=== PATIENT | female | born 1975 | race American Indian/Alaskan Native ===

== ENCOUNTER 2021-12-28 10:14 | Emergency (ER) | payer BC ==
[2021-12-28] MEDS ORDERED: ONDANSETRON 4 MG/2 ML INJ IV ONE (12:55)
[2021-12-28] MEDS ORDERED: SODIUM CHLORIDE 0.9% 1000 ML 1,000 ML IV ONE (12:55)
--- NOTE | 2021-12-28 13:01 | Emergency Department Report ---
ED N/V/D HPI - General Chief complaint: Nausea/Vomiting/Diarrhea Stated complaint: POSS STOMACH VIRUS Time Seen by Provider: 12/28/21 11:46 Source: patient Mode of arrival: Ambulatory Limitations: No Limitations - History of Present Illness Initial comments: 46-year-old female presents with nausea and vomiting associated with nonbloody diarrhea that has been going on for the last 1-1/2 days. Patient reported that her nephew which she had to cover over the weekend has the same symptoms. She denies any fever but chills. She reported about 5 emesis the last 6 hours. She says she was not able to keep any food or drink. Patient also reports some a bdominal discomfort. Patient denies any use of antibiotics the last 2 or 3 weeks. No other modifying or positive factors reported. - Related Data Previous Rx's Medication Instructions Recorded Last Taken Type Ondansetron (Nf) [Zofran TAB] 8 mg PO Q8HR PRN 5 Days #14 tablet 12/28/21 Unknown Rx Potassium Chloride [K-Dur] 20 meq PO QDAY 7 Days #7 tab NS 12/28/21 Unknown Rx Allergies Allergy/AdvReac Type Severity Reaction Status Date / Time Bleach (Sodium Hypochlorite) AdvReac Anaphylaxis Verified 12/28/21 10:24 morphine AdvReac Hives Verified 12/28/21 10:24 ED Review of Systems ROS: Stated complaint: POSS STOMACH VIRUS Other details as noted in HPI Comment: All other systems reviewed and negative Gastrointestinal: abdominal pain, nausea, vomiting, diarrhea ED Past Medical Hx - Past Medical History Previous Medical History?: Yes Hx Hypertension: Yes Hx Asthma: Yes - Surgical History Past Surgical History?: Yes Additional Surgical History: myomectomy 2017, hysterectomy - Medications Home Medications: Home Medications Medication Instructions Recorded Confirmed Last Taken Type Ondansetron (Nf) [Zofran TAB] 8 mg PO Q8HR PRN 5 Days #14 tablet 12/28/21 Unknown Rx Potassium Chloride [K-Dur] 20 meq PO QDAY 7 Days #7 tab NS 12/28/21 Unknown Rx ED Physical Exam - General Limitations: No Limitations General appearance: alert, in no apparent distress - Eye Eye exam: Present: normal appearance Pupils: Present: normal accommodation - ENT ENT exam: Present: normal exam, normal orophraynx, mucous membranes moist - Neck Neck exam: Present: normal inspection, full ROM - Respiratory Respiratory exam: Present: normal lung sounds bilaterally. Absent: respiratory distress, wheezes, accessory muscle use - Cardiovascular Cardiovascular Exam: Present: regular rate, normal rhythm, normal heart sounds - GI/Abdominal GI/Abdominal exam: Present: soft, tenderness (Diffuse mild abdominal tenderness to palpation), normal bowel sounds. Absent: distended - Extremities Exam Extremities exam: Present: normal inspection, full ROM, normal capillary refill - Back Exam Back exam: Present: normal inspection, full ROM. Absent: tenderness, CVA tenderness (R), CVA tenderness (L) - Neurological Exam Neurological exam: Present: alert, oriented X3 - Psychiatric Psychiatric exam: Present: normal affect, normal mood - Skin Skin exam: Present: warm, intact, normal color ED Course Vital Signs 12/28/21 12/28/21 13:09 15:13 Temperature 99 F Pulse Rate 90 Respiratory 18 Rate Blood Pressure 108/67 [Left] O2 Sat by Pulse 99 98 Oximetry - Reevaluation(s) Reevaluation #1: 12/28/21 13:00 Here with nausea and vomiting associated with nonbloody diarrhea this is likely gastroenteritis--we will go ahead and give morphine, Zofran, 1 L IV fluids for symptomatic relief and check CBC, CMP, and UA for any electrolyte or infectious process. Depending on the white count we might likely order CT scan of the abdomen/pelvic for any inflammatory changes. Reevaluation #2: 12/28/21 14:32 Patient report feeling much better after the IV fluids and the pain medicine with antinausea--chemistry and urinalysis is still pending at this point. We will continue to monitor progress. Reevaluation #3: 12/28/21 14:56 Patient told bedside notes that she is feeling much better and ready to go home her urinalysis and chemistry is still pending at this point. We will let patient go home with Zofran for symptomatic relief of nausea. Reevaluation #4: 12/28/21 15:53 This patient of left the emergency room because she says she has to be somewhere and was feeling much better while chemistry was pending. I got a call back from the lab that her potassium was 2.5 which is likely due to nausea and vomiting. Potassium chloride supplement of 20 mEq p.o. was prescribed to be taken daily for the next 7 days with close follow-up with your primary doctor. Patient bedside nurse plan to call patient and have this prescription to her. ED Medical Decision Making - Lab Data Result diagrams: 12/28/21 13:20 12/28/21 14:47 - Medical Decision Making Here with nausea and vomiting associated with none bloody emesis--this is likely gastroenteritis as compared to C. difficile considering no antibiotic use in recent time. CBC, CMP, and urinalysis ordered to rule out any electrolyte abnormality or infectious process. Critical care attestation.: If time is entered above; I have spent that time in minutes in the direct care of this critically ill patient, excluding procedure time. ED Disposition Clinical Impression: Gastroenteritis Nausea and vomiting Qualifiers: Vomiting type: unspecified Qualified Code(s): R11.2 - Nausea with vomiting, unspecified Diarrhea Qualifiers: Diarrhea type: unspecified type Qualified Code(s): R19.7 - Diarrhea, unspe cified Disposition: 01 HOME / SELF CARE / HOMELESS Is pt being admited?: No Does the pt Need Aspirin: No Condition: Stable Instructions: Food Choices to Help Relieve Diarrhea, Adult, Nausea and Vomiting, Adult, [id number], Diarrhea, Adult, [id number] Additional Instructions: Increase your daily fluid to help your hydration Start with bland diet to advance as tolerated Take your Zofran your antinausea medicine as prescribed to help your symptoms Call and schedule follow-up with your primary doctor in the next 3 to 4 days for progress Please do not hesitate to call or return to emergency room if your symptoms worsen. Prescriptions: Potassium Chloride [K-Dur] 20 meq PO QDAY 7 Days #7 tab NS Ondansetron (Nf) [Zofran TAB] 8 mg PO Q8HR PRN 5 Days #14 tablet PRN Reason: Nausea Referrals: SHIRA CHRISTIE MD [Primary Care Provider] - 3-5 Days
[2021-12-28 13:37] LABS: Basophils % (Auto) 0.2 % (0.0-1.8); Eosinophils # (Auto) 0.1 K/mm3 (0.0-0.4); Eosinophils % (Auto) 0.8 % (0.0-4.3); Hematocrit 42.2 % (30.3-42.9); Hemoglobin 13.9 gm/dl (10.1-14.3); Lymphocytes # (Auto) 0.7 K/mm3 (1.2-5.4); Lymphocytes % (Auto) 7.6 % (13.4-35.0); Mean Corpuscular HGB Conc 33 % (30-34); Mean Corpuscular Volume 74 fl (79-97); Monocytes # (Auto) 0.7 K/mm3 (0.0-0.8); Monocytes % (Auto) 8.2 % (0.0-7.3); Platelet Count 282 K/mm3 (140-440); Red Blood Count 5.69 M/mm3 (3.65-5.03); Red Cell Distribution Width 16.1 % (13.2-15.2)
[2021-12-28 14:10] LABS: HCG Qualitative,Urine Negative (Negative)
[2021-12-28 15:14] VITALS: BP 108/67
[2021-12-28 15:22] LABS: Alanine Aminotransferase 31 units/L (7-56); Albumin 3.1 g/dL (3.9-5); Blood Urea Nitrogen 7 mg/dL (7-17); Calcium 7.6 mg/dL (8.4-10.2); Hemolysis Index 15
[2021-12-28 15:24] LABS: BUN/Creatinine Ratio 12
== END 2021-12-28 15:11 | disposition home or self-care (01) ==
LOC: ED 10:14
DX: K52.9 Noninfective gastroenteritis and colitis, unspecified (principal); R11.2 Nausea with vomiting, unspecified; I10 Essential (primary) hypertension; J45.909 Unspecified asthma, uncomplicated; Z91.048 Other nonmedicinal substance allergy status; Z91.09 Other allergy status, other than to drugs and biological substances
CPT/HCPCS: 36415; 80053; 81025; 83690; 85025; 96361; 96374; 99283; J2405; J7030